=== PATIENT | female | born 1950 | race Caucasian/White ===

== ENCOUNTER 2017-05-01 10:21 | Outpatient (CLI) | payer MEDICARE, MEDICAID ==
[~2017-05-01] VITALS: Ht 147.3 cm; Wt 54.5 kg
--- NOTE | ~2017-05-01 | OP ---
PATIENT NAME: SHAR SAINI MEDICAL RECORD: [id number] :48 LOCATION:D.CAT ADMISSION DATE: SURGEON: PAOLA ALFONSO MD DATE OF OPERATION: 05/01/2017 PREOPERATIVE DIAGNOSIS: Sick sinus syndrome. POSTOPERATIVE DIAGNOSIS: Sick sinus syndrome. PROCEDURE: 1. Left subclavian vein dual lead pacemaker placement. 2. Fluoroscopic interpretation. SURGEON: Paola Alfonso MD COSURGEON: Lamonte Urbano MD REPORT OF PROCEDURE: The patient's left chest was prepped and draped in sterile fashion. A total of 20 mL of 1% lidocaine with epinephrine was infused into the surrounding tissues. A skin incision was made on the left superior lateral chest and the subcutaneous pouch was made over the pectoral fascia. We accessed the patient's left subclavian vein with 2 separate sticks and guidewires were advanced with ease. Over this wire, the dilators and trocars were placed, the dilators and wires were removed and the trocars were advanced into the venous system. At this point, Dr. Urbano performed placement of the leads into the atrium and ventricle. There was some difficulty with placement of the atrial lead. We eventually had to replace the trocar with a longer 7-Romanian trocar and at this point, it still felt that there was some abnormality to the placement. As we pulled back on the lead, it actually popped back into place and appeared to go back intraluminally. At this point, atrial lead was positioned easily by Dr. Urbano. Once the leads were noted to be in good position and functioning appropriately, then these were sutured into place with 0 Ti-Cron. The pacemaker was affixed to the leads and sutured into the subcutaneous pouch using a single 0 Ti-Cron. We irrigated out the wound with antibiotic solution and reapproximated the subcutaneous tissues with interrupted 3-0 Vicryls. The skin was then closed with running subcutaneous 5-0 Monocryl and dressed appropriately. COMPLICATIONS: None. CONDITION: Stable. ANESTHESIA: Local MAC. BLOOD LOSS: Minimal. TRANSINT:[id number] Voice Confirmation ID: [id number] DOCUMENT ID: [id number] OPERATIVE REPORT [id number] SHAR SAINI PAOLA ALFONSO MD at 0956 CC: [id number] DICTATION DATE: 05/01/17 1318 CORROSION CONTROL SPECIALIST: 05/01/17 1332 DEP CLI 05/02/17 [place] [id number] [place] [id number]
--- NOTE | ~2017-05-01 | OP ---
PATIENT NAME: ERA MCMANUS MEDICAL RECORD: [id number] :48 LOCATION:D.M2 D.2119 ADMISSION DATE: SURGEON: MARGARITA JJ MD DATE OF OPERATION: 05/01/2017 PROCEDURE: Lead portion of permanent pacemaker placement. SURGEON: Dr. Romero. INDICATION: Sinus arrest. DESCRIPTION OF PROCEDURE: After left subclavian was cannulated via modified Seldinger technique by Dr. Romero, first under fluoroscopic guidance, I placed the RV lead in the RV apex without difficulty. After adequate R waves and thresholds were obtained, again, under fluoroscopic guidance, I placed the right atrial lead into the right atrial appendage without difficulty. After adequate P waves and thresholds were obtained, we then attached the leads to appropriate poles of the generator and pocket was closed via Dr. Romero. IMPRESSION: Successful lead portion of permanent pacemaker placement on Era Mcmanus. COMPLICATIONS: None. ESTIMATED BLOOD LOSS: 1 mL. DISPOSITION: Stable. TRANSINT:[id number] Voice Confirmation ID: [id number] DOCUMENT ID: [id number] MARGARITA JJ MD at 1337 CC: [id number] DICTATION DATE: 05/01/17 1314 BUTTON TUFTING MACHINE OPERATOR: 05/01/17 1329 REG [facility] [address] [place] [address]
--- NOTE | ~2017-05-01 | HEMODYNAMI ---
PATIENT:SHAR SAINI MEDICAL RECORD: [id number] : 48 LOCATION:TRUMAN ADMISSION DATE: 05/01/17 Generatedon:05/01/201713:32 Patient name: SHAR SAINI Patient #: [id number] SSN: : 09[birth year] Date of study: 05/01/2017 Page: Of Hemodynamic Procedure Report Patient Data Patient Demographics Procedure consent was obtained First Name: SHAR Gender: Female Last Name: PARVEEN : 1950 Middle Initial: DREAD Age: 66 year(s) Patient #: [id number] Race: Unknown Additional ID: [id number] Contact details Address: [address] [place] [address] [address] State: [place] City: [facility] Zip code: [address] Past Medical History Allergies Allergen Reaction Date Comments Reported Morphine 05/01/2017 Penicillins 05/01/2017 Codeine 05/01/2017 Admission Admission Data Admission Date: 05/01/2017 Admission Time: 10:21 Procedure Procedure Types Cath Procedure Diagnostic Procedure PPM/ICD PPM Dual Implant Miscellaneous Procedures Moderate Sedation up to 45 minutes Procedure Description Procedure Date Procedure Date: 05/01/2017 Procedure Start Time: 12:40 Procedure End Time: 13:20 Procedure Staff Name Function Maximiliano Akers RN Nurse Maximiliano Akers RN Monitor Allan Romero MD Assisting physician Lamonte Urbano MD Performing Physician Rhianna Delvalle RT Scrub Katerine Barrientos RT Monitor Jocelyn Yi RN Nurse Procedure Data Cath Procedure Fluoroscopy Diagnostic fluoroscopy Total fluoroscopy Time: 8.7 time: 8.7 min min Estimated blood loss: 10 ml Procedure Complications No complications Procedure Medications Medication Administration Route Dosage 0.9% NaCl I.V. 100 ml/hr Lidocaine 1% added to field 20 Versed I.V. 1 mg Fentanyl I.V. 50 mcg Vancomycin Topical 1 g Irrigation Vancomycin I.V.P.B 1 g Fentanyl I.V. 50 mcg Versed I.V. 1 mg Fentanyl I.V. 50 mcg Fentanyl I.V. 50 mcg Versed I.V. 1 mg Hemodynamics Rest Heart Rate: 70 (bpm) Snapshots Pre Cath Intra NCS Post Cath Vital Signs Time Heart Resp SPO2 etCO2 NIBP (mmHg) Rhythm Pain Sedation Rate (ipm) (%) (mmHg) Status Level (bpm) 12:19:51 70 18 99 0 181/78(115) NSR 0 (11) 10(A) , No pain 12:24:19 74 14 98 0 179/79(106) NSR 0 (11) 10(A) , No pain 12:28:50 70 19 99 0 178/77(114) NSR 0 (11) 10(A) , No pain 12:33:20 71 17 99 0 186/75(118) NSR 0 (11) 10(A) , No pain 12:37:59 78 15 98 0 186/71(124) NSR 0 (11) 10(A) , No pain 12:43:26 73 18 96 0 174/70(133) NSR 0 (11) 10(A) , No pain 12:47:55 71 16 96 0 162/74(125) NSR 0 (11) 9(A) , No pain 12:52:21 97 16 96 0 155/78(119) NSR 0 (11) 9(A) , No pain 12:57:32 75 21 95 0 152/75(133) NSR 0 (11) 9(A) , No pain 13:01:53 76 17 95 0 161/77(109) NSR 0 (11) 9(A) , No pain 13:07:10 84 16 96 0 147/69(117) NSR 0 (11) 9(A) , No pain 13:13:31 80 16 97 0 164/76(111) NSR 0 (11) 10(A) , No pain 13:17:51 77 14 98 0 151/72(122) NSR 0 (11) 10(A) , No pain Medications Time Medication Route Dose Verified Delivered Reason Notes Effectiv eness by by 12:35:58 0.9% NaCl I.V. 100 Lamonte Banks used for ml/hr [facility] Y[facility] director systems 12:37:34 Lidocaine added 20ml Lamonte Aburto for local 1% to vial [facility] Urbano anesthetic field MD MILIAN 12:37:45 Versed I.V. 1 mg Lamonte Jocelyn for [facility] RN sedation 12:37:52 Fentanyl I.V. 50 Lamonte Jocelyn for [facility] sedation 12:38:04 Vancomycin Topical 1 g Lamonte Lamonte used for Irrigation [facility] procedure MD MILIAN 12:38:17 Vancomycin I.V.P.B 1 g Lamonte Jocelyn used for [facility] director systems 12:43:33 Fentanyl I.V. 50 Lamonte Jocelyn for [facility] RN sedation 12:43:40 Versed I.V. 1 mg Lamonte Jocelyn for [facility] RN sedation 12:56:54 Fentanyl I.V. 50 Lamonte Jocelyn for [facility] RN sedation 12:58:51 Fentanyl I.V. 50 Lamonte Jocelyn for [facility] RN sedation 13:00:39 Versed I.V. 1 mg Lamonte Jocelyn for [facility] RN sedation Procedure Log Time Note 12:03:46 Rhianna Delvalle RT(R) sent for patient. Start room use. 12:03:47 Time tracking: Regular hours 12:03:50 Plan of Care:Hemodynamics will remain stable., Cardiac rhythm will remain stable., Comfort level will be maintained., Respiratory function will remain adequate., Patient/ family verbilizes understanding of procedure., Procedure tolerated without complication., Recovers from procedure without complications.. 12:10:34 Patient received from Pre/Post Procedure Room to [facility] 3 Alert and oriented. Tansferred to table in Supine position. 12:10:35 Warm blankets applied, and tj hugger turned on for patient comfort. 12:10:36 Correct patient and procedure confirmed by team. 12:10:38 Signed procedure consent form obtained from patient. 12:10:39 ECG and BP/O2 sat monitors applied to patient. 12:10:40 Full Disclosure recording started 12:18:33 Vital chart was started 12:18:36 Rhythm: sinus rhythm 12:18:44 H&P Date Dictated: 05/01/2017 New H&P dictated by physician.. 12:18:47 Pre-procedure instructions explained to patient. 12:18:48 Pre-op teaching completed and patient verbalized understanding. 12:18:50 Family in patients room. 12:19:05 Patient NPO since Midnight. 12:19:11 Patient allergic to Morphine 12:19:17 Patient allergic to Penicillins 12:19:23 Patient allergic to Codeine 12:19:26 Is the patient allergic to Iodine/contrast media? No. 12:19:27 Is patient on blood thinner?No 12:19:30 Patient diabetic? No. 12:19:34 Previous problem with sedation/anesthesia? No ? 12:19:35 Snore? No 12:19:36 Sleep apnea? No 12:19:37 Deviated septum? No 12:19:38 Opens mouth fully? Yes 12:19:39 Sticks out tongue? Yes 12:19:40 Airway obstruction? No ? 12:19:42 Dentures? Yes iN 12:19:45 Pre procedure: right dorsailis pedis pulse 2+ Normal; easily identifiable; not easily obliterated 12:19:47 Patient pain scale 0/10 ?. 12:19:55 IV patent on arrival in right hand with 0.9% NaCl at [facility]. 12:19:58 Lab results completed and on chart. 12:20:03 Left chest area was prepped with chlora-prep and draped in sterile fashion 12:20:04 Alarms reviewed by R. N. 12:20:05 Sharps counted by scrub and verified by R.N. 12:20:15 Use device set KADEN PPM 12:20:17 2.0 Ticron Multipack ([id number]) opened to sterile field. 12:20:18 5.0 Monocryl PS2 [id number] opened to sterile field. 12:20:18 3.0 Vicryl Single Pack [id number] opened to sterile field. 12:20:19 Cautery Pushbutton Pencil opened to sterile field. 12:20:19 Cautery Tip Molder Shoulder Pad opened to sterile field. 12:20:20 Mepilex Dressing (425791) opened to sterile field. 12:20:36 [facility] sales representative groceries YO SHEPHERD present for procedure. 12:20:53 Pre sharps counted by scrub and verified by RN: Sutures: 7; Sponges: 5; Stick needles: 2; Skin needles: 2; Blade: 1; Cautery: 1 12:20:58 Grounding pad site Left thigh. 12:20:59 Grounding pad site free from injury. 12:21:22 Medtronic Advisa MRI PPM Dual Generator [id number] opened to sterile field. 12:21:35 Medtronic 4074-52 PPM Lead opened to sterile field. 12:21:38 Medtronic 4574-45 PPM Lead opened to sterile field. 12:24:00 Immobilizer Sling Medium opened to sterile field. 12:29:56 Baseline sample Acquired. 12:35:54 Final Timeout: patient, procedure, and site verified with staff and physician. All members of the team are in agreement. 12:35:58 0.9% NaCl 100 ml/hr I.V. was administered by Jocelyn Yi RN; used for procedure; 12:36:00 Left chest site verified by team. 12:36:04 Physical assessment completed. ASA score P 2 - A patient with mild systemic disease as per Lamonte Urbano MD. 12:36:06 Sedation plan: IV Moderate Sedation Medication:Versed, Fentanyl 12:37:34 Lidocaine 1% 20ml vial added to field was administered by Lamonte Urbano MD; for local anesthetic; 12:37:45 Versed 1 mg I.V. was administered by Jocelyn Yi RN; for sedation; 12:37:52 Fentanyl 50 mcg I.V. was administered by Jocelyn Yi RN; for sedation; 12:38:04 Vancomycin Irrigation 1 g Topical was administered by Lamonte Urbano MD; used for procedure; 12:38:17 Vancomycin 1 g I.V.P.B was administered by Jocelyn Yi RN; used for procedure; 12:40:13 Procedure started. 12:40:28 Lidocaine 1% was administered to left subclavicular area by Allan Romero MD . 12:40:30 Incision made to left subclavicular area. 12:43:25 Generator pocket made/opened. 12:43:33 Fentanyl 50 mcg I.V. was administered by Jocelyn Yi RN; for sedation; 12:43:40 Versed 1 mg I.V. was administered by Jocelyn Yi RN; for sedation; 12:47:26 Left subclavian vein accessed with 7Fr Peel Away Sheath. 12:48:06 Ventricular lead inserted and advanced. 12:48:08 Peel-a-way sheath was split and removed. 12:48:42 Left subclavian vein accessed with 7Fr Peel Away Sheath. 12:48:47 Atrial lead inserted and advanced. 12:48:48 Peel-a-way sheath was split and removed. 12:51:33 Ventricular lead positioned. 12:51:36 Ventricular lead tested. 12:52:55 Atrial lead positioned. 12:56:18 LONG 7FR PEELAWAY SHEATH INSERTED LT SUBCLAVIAN VEIN 12:56:42 Atrial lead repositioned. 12:56:54 Fentanyl 50 mcg I.V. was administered by Jocelyn Yi RN; for sedation; 12:58:51 Fentanyl 50 mcg I.V. was administered by Jocelyn Yi RN; for sedation; 12:59:09 Atrial lead tested. 13:00:39 Versed 1 mg I.V. was administered by Jocelyn Yi RN; for sedation; 13:02:50 Atrial lead repositioned. 13:02:54 Atrial lead tested. 13:05:55 Atrial lead attachment was completed with 2-0 ticron. 13:06:05 Ventricular lead attachment was completed with 2-0 ticron. 13:08:22 PPM Dual was attached to lead(s) and inserted into pocket. 13:10:50 Device pocket was irrigated with Vancomycin. 13:13:52 Parameters-- Generator: Mode: AAIR/DDDR. Lower Rate: 60bpm. Upper Rate: 120bpm. 13:14:44 Parameters--Ventricular P/R Wave: 6.1mV. Current: 0.5mA; Threshold: 0.4V; Impedence: 1027OHMS. 13:15:12 Parameters--Atrial P/R Wave: 2.4mV. Current: 0.5mA; Threshold: 0.4V; Impedence: 716OHMS. 13:15:23 Subcutaneous closure was completed with 3-0 vicryl. 13:15:32 Skin closure was completed with 5-0 monocryl. 13:15:37 Lt Chest incision was dressed with Mepilex dressing. 13:15:43 Procedure ended.(Physican Out) 13:16:05 Post sharps counted by scrub and verified by RN: Sutures: 7; Sponges: 5; Stick needles: 2; Skin needles: 2; Blade: 1; Cautery: 1 13:16:16 Fluoroscopy time 08.70 minutes. 13:16:40 Sharps counted by scrub and verified by R.N. 13:16:43 Insertion/operative site no bleeding no hematoma. 13:16:49 Post-procedure physical assessment completed. ASA score P 2 - A patient with mild systemic disease as per Lamonte Urbano MD. 13:16:53 Post procedure rhythm: paced 13:16:56 Estimated blood loss: 10 ml 13:16:57 Post procedure instruction explained to patient.Patient verbalizes understanding. 13:16:59 Patient needs reinforcement of post procedure teaching. 13:17:43 Procedure type changed to Cath procedure, Diagnostic procedure, PPM/ICD, PPM Dual Implant, Miscellaneous Procedures, Moderate Sedation up to 45 minutes 13:18:12 Procedure and supply charges have been captured, reviewed, submitted and are correct. 13:18:15 Procedure Complication : No complications 13:20:39 See physician's report for complete and final results. 13:20:39 Vital chart was stopped 13:20:42 Report given to PCU. 13:20:45 Patient transfered to PCU with Bed. 13:20:47 Full Disclosure recording stopped 13:20:47 Procedure ended. 13:20:55 End room use (Document Last) 13:27:39 Pt. short of breath and continually coughing. Per Robert Benavidez will do an ECHO Device Usage Item Name Manufacture Quantity Catalog Hospital Part Current Minimal Lot# / Number Charge Number Stock Stock Serial# Code 2.0 Ticron Ethicon 2 [id number] 69280 [id number] 5 Multipack ([id number]) 3.0 Vicryl Ethicon 1 [id number] 275304 954928 [id number] 5 Single Pack [id number] 5.0 Monocryl Ethicon 1 Y495G 217575 621067 782679 5 PS2 Y495G Cautery Tip Microtek 1 [id number] [id number] 714205 775601 5 Molder Shoulder Pad [employer] Cautery Microtek 1 [id number] 994067 97234 [id number] 5 Pushbutton [employer] Inc[employer] Pencil Mepilex Cardinal 1 [id number] 976445 [id number] 5 [facility] ([id number]) Medtronic Medtronic 1 [id number] [id number] 056869 5 SN Advisa MRI [id number] PPM Dual EXP Generator 2018-08-11 A2DR01 Medtronic Medtronic 1 4074-52 973637 022931 5 SN 4074-52 PPM [id number] Lead EXP 2017-10-11 Medtronic Medtronic 1 4574-45 [id number] [id number] 5 SN 4574-45 PPM [id number] Lead EXP 2018-12-01 Immobilizer Cardinal 1 [id number] 5 [facility] Signature Audit [place] Stage Time Signature Unsigned Intra-Procedure 05/01/2017 Katerine Barrientos 1:21:30 PM RT(R) RT(R) 05/01/2017 1:26:53 PM Intra-Procedure 05/01/2017 Katerine Barrientos 1:32:06 PM RT(R) Signatures Monitor : Maximiliano Akers Signature : RN Date : Time : Monitor : Katerine Barrientos Signature : RT Date : Time : [address] [address]
--- NOTE | ~2017-05-01 | HP ---
PATIENT: SHAR SAINI MEDICAL RECORD: [id number] ACCOUNT: [id number] LOCATION:[address] : [birth year] ADMISSION DATE: 05/01/17 HISTORY AND PHYSICAL EXAMINATION HISTORY OF PRESENT ILLNESS: A 66-year-old female with a history of cardiac arrhythmias, been having intermittent syncopal episodes, underwent event monitoring, able to capture a 13-second episode of sinus arrest, being brought in for permanent pacemaker placement for the above. PAST MEDICAL HISTORY: Includes; 1. History of diabetes mellitus. 2. Gastric carcinoma, status post resection, currently no recurrence of disease with every 6 months colonoscopy and EGD. 3. Diabetes mellitus. 4. Hypertension. PHYSICAL EXAMINATION: GENERAL: Pleasant female, appears stated age, in no acute distress. HEENT: Normocephalic, atraumatic. NECK: No bruits noted. HEART: Regular. LUNGS: Good air excursion. ABDOMEN: Soft, nontender. EXTREMITIES: Pulses 2+. There is no edema. IMPRESSION: Sinus arrest 13 seconds. PLAN: Permanent pacemaker placement. TRANSINT:[id number] Voice Confirmation ID: [id number] DOCUMENT ID: [id number] MARGARITA JJ MD at 1337 CC: [id number] DICTATION DATE: 05/01/17 1238 CAFE WORKER: 05/01/17 1328 REG [facility] [address] [place] [address]
[2017-05-01] MEDS ORDERED: MECLIZINE HCL25 MG PO (10:53)
[2017-05-01 10:55] VITALS: BP 172/64; BMI 25.1
[2017-05-01 11:25] LABS: HEMATOCRIT 38.8 % (36.0-48.0); HEMOGLOBIN 12.9 g/dL (12-16); MCH 28.9 pg (26.0-34.0); MCHC 33.2 g/dL (31.0-37.0); MCV 86.8 fL (80.0-100.0); MEAN PLATELET VOLUME 10.1 fL (7.4-10.4); RBC 4.47 10x6/uL (4.00-5.40); RDW 12.3 % (11.5-14.5); WBC 4.5 10x3/uL (4.8-10.8)
[2017-05-01 11:29] LABS: INR 0.93 (0.85-1.17); PROTIME 12.1 SECONDS (11.6-15.0)
[2017-05-01 11:31] LABS: ANION GAP 11.3 mmol/L (8-16); CALCIUM 8.8 mg/dL (8.5-10.1); CARBON DIOXIDE 28.8 mmol/L (21.0-32.0); POTASSIUM - SERUM 3.1 mmol/L (3.5-5.1)
[2017-05-01 15:02] VITALS: BP 170/64; Ht 147.3 cm; Wt 54.5 kg
[2017-05-01 20:00] VITALS: BP 152/62
[2017-05-02] VITALS: BP 123/55
[2017-05-02 04:00] VITALS: BP 144/58
[2017-05-02 08:41] VITALS: BP 122/55
== END 2017-05-02 15:11 | disposition home or self-care (01) ==
LOC: D.CATH 10:21 → D.M2 14:34 → D.CATH 05-02 15:11
PROVIDERS: Internal Medicine Interventional Cardiology
DX: I49.5 Sick sinus syndrome (principal); I10 Essential (primary) hypertension; E11.9 Type 2 diabetes mellitus without complications; Z85.028 Personal history of other malignant neoplasm of stomach; Z01.812 Encounter for preprocedural laboratory examination